=== PATIENT | male | born 1955 | race Caucasian/White ===

== ENCOUNTER 2024-02-19 07:43 | Outpatient (CLI) | payer MEDICARE | END 2024-02-19 07:44 | disposition home or self-care (01) | LOC: CT 07:43 | PROVIDERS: ATTEND Family Medicine | DX: J34.89 Other specified disorders of nose and nasal sinuses (principal); J34.2 Deviated nasal septum ==

== ENCOUNTER 2024-03-07 10:14 | Outpatient (CLI) | payer MEDICARE | END 2024-03-07 10:15 | disposition home or self-care (01) | LOC: BICCT 10:14 | PROVIDERS: ATTEND Family Medicine | DX: S22.059A Unspecified fracture of T5-T6 vertebra, initial encounter for closed fracture (principal) | CPT/HCPCS: 72128 ==

== ENCOUNTER 2024-06-12 10:03 | Outpatient (CLI) | payer MEDICARE | END 2024-06-12 10:04 | disposition home or self-care (01) | LOC: RAD 10:03 | PROVIDERS: ATTEND Internal Medicine Critical Care Medicine | DX: R06.00 Dyspnea, unspecified (principal); J43.9 Emphysema, unspecified; J98.4 Other disorders of lung | CPT/HCPCS: 71046 ==

== ENCOUNTER 2025-01-27 14:31 | Outpatient (CLI) | payer OTHER, MEDICARE | END 2025-01-27 14:32 | disposition home or self-care (01) | LOC: SCSRAD 14:31 | PROVIDERS: ATTEND Family Medicine | DX: J44.9 Chronic obstructive pulmonary disease, unspecified (principal) | CPT/HCPCS: 71046 ==

== ENCOUNTER 2025-02-27 10:22 | Outpatient (CLI) | payer OTHER, MEDICARE | END 2025-02-27 10:23 | disposition home or self-care (01) | LOC: RAD 10:22 | PROVIDERS: ATTEND Internal Medicine Critical Care Medicine | DX: R06.00 Dyspnea, unspecified (principal); J43.2 Centrilobular emphysema; S22.32XA Fracture of one rib, left side, initial encounter for closed fracture | CPT/HCPCS: 71046 ==

== ENCOUNTER 2025-05-14 15:04 | Outpatient (CLI) | payer OTHER, MEDICARE | END 2025-05-14 15:05 | disposition home or self-care (01) | LOC: SCSRAD 15:04 | PROVIDERS: ATTEND Family Medicine | DX: S22.080A Wedge compression fracture of T11-T12 vertebra, initial encounter for closed fracture (principal); W19.XXXS Unspecified fall, sequela; Y92.009 Unspecified place in unspecified non-institutional (private) residence as the place of occurrence of the external cause; S32.019A Unspecified fracture of first lumbar vertebra, initial encounter for closed fracture; S32.059A Unspecified fracture of fifth lumbar vertebra, initial encounter for closed fracture; M85.88 Other specified disorders of bone density and structure, other site | CPT/HCPCS: 72072; 72110 ==